=== PATIENT | female | born 1985 | race Two or more races ===

== ENCOUNTER 2017-11-08 10:55 | Outpatient (CLI) | payer OTHER ==
[~2017-11-08 10:55] MED LIST: CEFUROXIME500 MG PO; DOLOGESIC 500-1 EACH PO; PRILOSEC20 MG; ZEGERID 40 MG C1 CAP
== END 2017-11-08 13:01 | disposition designated cancer center or children's hospital (05) ==
LOC: OBS/DEL 10:55
DX: O26.892 Other specified pregnancy related conditions, second trimester (principal); O60.02 Preterm labor without delivery, second trimester; Z34.82 Encounter for supervision of other normal pregnancy, second trimester; Z04.1 Encounter for examination and observation following transport accident; V49.88XA Car occupant (driver) (passenger) injured in other specified transport accidents, initial encounter; Y93.89 Activity, other specified; Y92.488 Other paved roadways as the place of occurrence of the external cause; Y99.8 Other external cause status

== ENCOUNTER 2017-11-08 12:23 | Emergency (ER) | payer OTHER ==
[~2017-11-08] VITALS: Ht 162.6 cm; Wt 68.0 kg
== END 2017-11-08 14:22 | disposition home or self-care (01) ==
LOC: ER 12:23
DX: O26.892 Other specified pregnancy related conditions, second trimester (principal); S10.83XA Contusion of other specified part of neck, initial encounter; V49.9XXA Car occupant (driver) (passenger) injured in unspecified traffic accident, initial encounter; Y93.89 Activity, other specified; Y92.488 Other paved roadways as the place of occurrence of the external cause; Y99.8 Other external cause status; Z34.82 Encounter for supervision of other normal pregnancy, second trimester

== ENCOUNTER 2018-02-10 09:15 | Inpatient (IN) | payer OTHER ==
[~2018-02-10] VITALS: Ht 162.6 cm; Wt 76.7 kg
[2018-02-11] MEDS ORDERED: PRENATAL 19 TA1 EAC1 PO (13:49)
[2018-02-11] MEDS ORDERED: ZANTAC 7575 MG PO (13:50)
== END 2018-02-13 15:05 | disposition home or self-care, planned readmission (81) | DRG 807 ==
LOC: LDR 02-11 08:37 → OB/GYN 02-11 17:41
PROC: 10E0XZZ Delivery of Products of Conception, External Approach (ICD-10-PCS; principal; 2018-02-11)
PROC: 0W8NXZZ Division of Female Perineum, External Approach (ICD-10-PCS; 2018-02-11)
PROC: 4A1HXCZ Monitoring of Products of Conception, Cardiac Rate, External Approach (ICD-10-PCS; 2018-02-11)
DX: O80 Encounter for full-term uncomplicated delivery (principal); Z37.0 Single live birth; Z3A.39 39 weeks gestation of pregnancy; Z22.330 Carrier of Group B streptococcus